=== PATIENT | male | born 1950 | race Caucasian/White ===

== ENCOUNTER 2017-11-03 11:40 | Day surgery (SDC) | payer MEDICARE, OTHER ==
[~2017-11-03] VITALS: Ht 185.4 cm; Wt 158.1 kg
[~2017-11-03 11:40] MED LIST: OXAP600; Ultram50 MG PO; WARF5; WARF7.5
== END 2017-11-03 14:16 | disposition home or self-care (01) ==
LOC: ORSCSDS 11:40
PROVIDERS: Internal Medicine Gastroenterology
PROC: 0DB68ZX Excision of Stomach, Via Natural or Artificial Opening Endoscopic, Diagnostic (ICD-10-PCS; principal; 2017-11-03 13:30)
PROC: 0DB58ZX Excision of Esophagus, Via Natural or Artificial Opening Endoscopic, Diagnostic (ICD-10-PCS; principal; 2017-11-03 13:30)
PROC: 0D757ZZ Dilation of Esophagus, Via Natural or Artificial Opening (ICD-10-PCS; principal; 2017-11-03 13:30)
PROC: 0DJD8ZZ Inspection of Lower Intestinal Tract, Via Natural or Artificial Opening Endoscopic (ICD-10-PCS; principal; 2017-11-03 13:30)
DX: K21.9 Gastro-esophageal reflux disease without esophagitis (principal); B96.81 Helicobacter pylori [H. pylori] as the cause of diseases classified elsewhere; K22.2 Esophageal obstruction; Z12.11 Encounter for screening for malignant neoplasm of colon; K57.30 Diverticulosis of large intestine without perforation or abscess without bleeding; E66.01 Morbid (severe) obesity due to excess calories; Z68.42 Body mass index [BMI] 45.0-49.9, adult; Z86.718 Personal history of other venous thrombosis and embolism; Z79.01 Long term (current) use of anticoagulants; G47.33 Obstructive sleep apnea (adult) (pediatric)
CPT/HCPCS: 43239; 43450; G0121; 87081; 88305; J7120

== ENCOUNTER 2022-11-04 17:01 | Inpatient (IN) | payer MEDICARE, BC ==
[~2022-11-04] VITALS: Ht 185.4 cm; Wt 163.0 kg
[2022-11-04 17:36] LABS: BASOPHILS ABSOLUTE AUTO 0.05 K/mm3 (0.00-0.23); BASOPHILS PERCENT AUTO 1 % (0-2); EOSINOPHILS ABSOLUTE AUTO 0.29 K/mm3 (0.00-0.68); EOSINOPHILS PERCENT AUTO 5 % (0-6); Hemoglobin 13.8 g/dL (13.5-17.5); IMMATURE GRAN ABSOLUTE AUTO 0.02 K/mm3 (0.00-0.10); IMMATURE GRAN PERCENT AUTO 0 % (0-1); LYMPHOCYTES ABSOLUTE AUTO 0.92 K/mm3 (0.84-5.20); LYMPHOCYTES PERCENT AUTO 16 % (21-46); MONOCYTES ABSOLUTE AUTO 0.81 K/mm3 (0.16-1.47); MONOCYTES PERCENT AUTO 14 % (4-13); Mean Corpuscular HGB 28.2 pg (26.0-34.0); Mean Corpuscular HGB Conc 33.7 g/dL (31.5-36.5); Mean Corpuscular Volume 84 fL (80-100); NEUTROPHILS ABSOLUTE AUTO 3.57 K/mm3 (1.96-9.15); NEUTROPHILS PERCENT AUTO 63 % (41-73); Platelet Count 293 K/mm3 (150-400); RDW Coefficient Variation 14.5 % (11.7-14.2); RDW Standard Deviation 44.3 fL (35.1-46.3); Red Blood Cell Count 4.89 M/mm3 (4.30-5.90); White Blood Cell Count 5.66 K/mm3 (4.00-11.30)
[2022-11-04 17:58] LABS: Albumin, Blood 3.6 g/dL (3.4-5.0); Bilirubin, Total 0.3 mg/dL (0.1-1.0); Bun/Creatinine Ratio 10.9 (12.0-20.0); Calcium, Blood 8.9 mg/dL (8.5-10.1); Creatinine, Blood 1.01 mg/dL (0.60-1.20); Globulin, Blood 3.7 g/dL (2.2-4.0); Potassium, Blood 3.8 mmol/L (3.5-5.5); Total Protein, Blood 7.3 g/dL (6.4-8.2)
[2022-11-04 18:59] LABS: International Normalized Ratio 2.36; Prothrombin Time Results 23.4 Sec (9.7-11.5)
[2022-11-04] MEDS ORDERED: AMLO10 PO (20:56)
--- NOTE | 2022-11-05 00:11 | NUR ---
ASSUMPTION OF CARE THIS RN ASSUMED CARE OF PATIENT AT 2300. REPORT TAKEN FROM MEERA BERNARD. MED REC AND HISTORY DONE. PATIENT ALERT AND ORIENTED FULLY. VITALS STABLE. NO PAUSES NOTED YET THIS SHIFT. HR 70-80'S. PATIENT DENIES CHEST PAIN/PRESSURE, DIZZINESS, AND SOB AT REST. REPORTS SOB WITH EXERTION BUT NOTES THIS IS NORMAL FOR HIM. PPP. BS+. PATIENT REPORTS WEARING CPAP AT NIGHT BUT DENIES NEED FOR ONE TONIGHT. WILL CONTINUE TO MONITOR FOR NEED AND EDUCATE PATIENT APPROPRIATE. BED IN LOWEST POSITION AND CALL LIGHT WTIHIN REACH.
[2022-11-05 04:28] LABS: International Normalized Ratio 2.16; Prothrombin Time Results 21.6 Sec (9.7-11.5)
--- NOTE | 2022-11-05 04:40 | NUR ---
SHIFT SUMMARY NO ACUTE CHANGES OVERNIGHT. NO PAUSES NOTED ON TELE SINCE ARRIVAL TO UNIT. SR WITH HR 60-80'S. DENIES CHEST PAIN/PRESSURE, DIZZINESS, AND SOB. NOTED SOB WITH EXERTION WHICH IS PATIENT'S BASELINE. ON RA WITH SPO2 >90%. BP STABLE. AFEBRILE. PATIENT ALERT AND ORIENTED FULLY. ABLE TO MAKE NEEDS KNOWN. PATIENT DENIED NEED FOR CPAP OVERNIGHT. CONTINUOUS PULSE OXIMETRY IN PLACE. PATIENT HAS BEEN NPO SINCE MIDNIGHT. BED IN LOWEST POSITION AND CALL LIGHT WITHIN REACH. THIS RN WILL CONTINUE TO MONITOR UNTIL SHIFT CHANGE AT 0700.
--- NOTE | 2022-11-05 08:09 | NUR ---
ASSUMED CARE PT AWAKE AND ALERT. ANSWERING ORIENTATION QUESTIONS APPROPRIATELY. VS STABLE. HR NSR ON THE MONITOR AND NO PAUSES REPORTED FROM CHECKERING MACHINE OPERATOR. BP STABLE. PT DENIES ANY PAIN. PT COMPLAINS ABOUT NPO STATUS STATING HE IS "STARVING". PT EDUCATED ON NEED FOR NPO. PT ABLE TO REPOSITION HIMSELF INDEPENDENTLY AND STABLE ON HIS FEET. AT BEDSIDE. WILL CONTINUE TO MONITOR CLOSELY
--- NOTE | 2022-11-05 12:11 | NUR ---
UPDATE/CODE Pt was sitting at edge of bed after IV placement. Stated "I don't feel well". Tele started alarming with rate in the 30's. Pt lost consciousness, put back into bed. No pulse felt, code blue called, CPR initiated, pt started to wake after approx [address] German in room. Orders obtained. BP stable at this time. Pt to be taken to track repair laborer for pacemaker. Tele showed that Pt went into complete heart black with approx 16 sec pause. After compressions HR came back to NSR in the 60's.
--- NOTE | 2022-11-05 12:18 | NUR ---
PT TAKEN TO [facility] FOR PACEMAKER PLACEMENT. WILL AWAIT RETURN
--- NOTE | 2022-11-05 15:24 | NUR ---
UPDATE PT RETURNED FROM [facility]. VS STABLE. WOUND TO LEFT CHEST WALL WITH PRESSURE DRESSING ON IS C/D/I. PT COMPLAINS OF TENDERNESS AND ICE PIKE PLACED. HR NSR ON THE MONITOR AT 70. BP STABLE. PT PROVIDED WATER AND SNACK REQUESTED. HOB AT 45 DEGREES. PT INSTRUCTED ON LEFT ARM RESTRICTIONS. PT VERBALIZES UNDERSTANDING. WILL CONTINUE TO MONITOR CLOSELY
--- NOTE | 2022-11-05 20:30 | NUR ---
ASSUMPTION OF CARE THIS RN ASSUMED CARE OF PATIENT AT 1900. REPORT TAKE FROM YANIV BERNARD. PATIENT ALERT AND ORIENTED FULLY. ABLE TO MAKE NEEDS KNOWN. SBA WITH TRANSFERRING. LEFT CHEST WALL PACEMAKER SITE DRESSING C/D/I. NO BLEEDING, HEMATOMA, SWELLING, DISCOLORATION, OR SUBCUTANEOUS EPHYSEMA NOTED. MILD TENDERNESS WITH PALPATION; MEDICATING PER EMAR. SR WITH 1ST DEGREE HB ON MONITOR WITH HR 70-80'S. OCCASIONAL VENT PACED BEATS NOTED WHILE PATIENT IS SLEEPING. PATIENT EDUCATED ON USING CPAP ANYTIME HE IS SLEEPING. PATIENT AT >45 DEGREES IN BED PER ORDER UNTIL 2300. PATIENT VERBALIZED RESTRICTIONS FOR LEFT ARM/SHOULDER MOVEMENTS. REINFORCING EDUCATION NEEDED. BP STABLE. AFEBRILE. ON RA WITH SPO2 >92%. PPP. BS+. BED IN LOWEST POSITION AND CALL LIGHT WITHIN REACH.
[2022-11-06 04:20] LABS: International Normalized Ratio 1.57
--- NOTE | 2022-11-06 04:41 | NUR ---
SHIFT SUMMARY NO ACUTE CHANGES OVERNIGHT. PACEMAKER SITE DRESSING C/D/I. NO SWELLING, HEMATOMA, DISCOLORATION, OR BLEEDING NOTED. MILD TENDERNESS NOTED WITH PALPATION. NO SUBCUTANEOUS EMPYSEMA. SR WITH 1ST DEGREE HB WITH OCCASIONAL V-PACED BEATS, HR 70-90'S. BP STABLE. AFEBRILE. SPO2 >92% ON RA. PATIENT WORE HIS CPAP DURING THIS SHIFT WHILE ASLEEP. SBA TO BATHROOM. DENIES CHEST PAIN/PRESSURE AND DIZZINESS/LIGHTHEADEDNESS. BED IN LOWEST POSITION AND CALL LIGHT WITHIN REACH. THIS RN WILL CONTINUE TO MONITOR UNTIL SHIFT CHANGE AT 0700.
[2022-11-06] MEDS ORDERED: LISI10 PO (10:50)
[2022-11-06] MEDS ORDERED: Acetaminophen325 M1 PO (10:50)
== END 2022-11-06 11:30 | disposition home or self-care (01) | DRG 242 ==
LOC: ER 17:01 → PCU 17:02
PROVIDERS: Emergency Medicine; Family Medicine; Student in an Organized Health Care Education/Training Program; ADMIT Internal Medicine
PROC: 0JH606Z Insertion of Pacemaker, Dual Chamber into Chest Subcutaneous Tissue and Fascia, Open Approach (ICD-10-PCS; principal; 2022-11-05)
PROC: 02H63JZ Insertion of Pacemaker Lead into Right Atrium, Percutaneous Approach (ICD-10-PCS; 2022-11-05)
PROC: 02HK3JZ Insertion of Pacemaker Lead into Right Ventricle, Percutaneous Approach (ICD-10-PCS; 2022-11-05)
PROC: B517YZZ Fluoroscopy of Left Subclavian Vein using Other Contrast (ICD-10-PCS; 2022-11-05)
PROC: B51NYZZ Fluoroscopy of Left Upper Extremity Veins using Other Contrast (ICD-10-PCS; 2022-11-05)
PROC: 5A12012 Performance of Cardiac Output, Single, Manual (ICD-10-PCS; 2022-11-05)
PROC: 5A09357 Assistance with Respiratory Ventilation, Less than 24 Consecutive Hours, Continuous Positive Airway Pressure (ICD-10-PCS; 2022-11-05)
DX: I49.5 Sick sinus syndrome (principal); I46.2 Cardiac arrest due to underlying cardiac condition; Z68.42 Body mass index [BMI] 45.0-49.9, adult; I44.0 Atrioventricular block, first degree; I48.0 Paroxysmal atrial fibrillation; I10 Essential (primary) hypertension; G47.33 Obstructive sleep apnea (adult) (pediatric); M25.561 Pain in right knee; E66.01 Morbid (severe) obesity due to excess calories; M17.11 Unilateral primary osteoarthritis, right knee; G89.29 Other chronic pain; Z90.49 Acquired absence of other specified parts of digestive tract; Z87.19 Personal history of other diseases of the digestive system; Z98.890 Other specified postprocedural states; Z86.718 Personal history of other venous thrombosis and embolism; Z86.711 Personal history of pulmonary embolism; Z79.01 Long term (current) use of anticoagulants; Z79.891 Long term (current) use of opiate analgesic; Z79.899 Other long term (current) drug therapy
CPT/HCPCS: 33208; 36415; 71046; 80053; 85025; 85610; 85730; 93005; 93010; 94660; 94762; 99152; 99153; 99285-25; A9270; C1785; C1894; C1898; G0378; J0461; J0690; J1644; J2250; J3010; J7030; J7040; J7050; Q9967